=== PATIENT | female | born 1965 | race American Indian/Alaskan Native ===

== ENCOUNTER 2018-03-22 20:13 | Emergency (ER) | payer SELFPAY ==
[2018-03-22 20:22] VITALS: BP 159/101
--- NOTE | 2018-03-22 21:35 | XRay Report ---
FINAL REPORT EXAM: XR FOREARM LT HISTORY: puncture wound TECHNIQUE: Left forearm two views PRIORS: None. FINDINGS: There is no fracture identified. No radiopaque foreign bodies are seen. There is soft tissue air and irregularity consistent with the history of puncture wound. IMPRESSION: No fracture or radiopaque foreign body identified
[2018-03-22 23:38] LABS: Basophils % (Auto) 0.3 % (0.0-1.8); Eosinophils # (Auto) 0.2 K/mm3 (0.0-0.4); Eosinophils % (Auto) 1.3 % (0.0-4.3); Hematocrit 38.8 % (30.3-42.9); Hemoglobin 12.8 gm/dl (10.1-14.3); Lymphocytes # (Auto) 2.5 K/mm3 (1.2-5.4); Lymphocytes % (Auto) 19.7 % (13.4-35.0); Mean Corpuscular HGB Conc 33 % (30-34); Mean Corpuscular Hemoglobin 32 pg (28-32); Mean Corpuscular Volume 96 fl (79-97); Monocytes # (Auto) 0.9 K/mm3 (0.0-0.8); Monocytes % (Auto) 6.9 % (0.0-7.3); Platelet Count 310 K/mm3 (140-440); Red Blood Count 4.05 M/mm3 (3.65-5.03); Red Cell Distribution Width 13.1 % (13.2-15.2)
[2018-03-22 23:55] LABS: Alanine Aminotransferase 10 units/L (7-56); Albumin 4.5 g/dL (3.9-5); BUN/Creatinine Ratio 17; Blood Urea Nitrogen 10 mg/dL (7-17); Calcium 9.5 mg/dL (8.4-10.2); Hemolysis Index 1
[2018-03-23] MEDS ORDERED: PERCOCET 5/325 ONE (00:37)
[2018-03-23] MEDS ORDERED: PERCOCET 5/325 PO ONE (00:38)
--- NOTE | 2018-03-23 01:04 | Emergency Department Report ---
- General Chief Complaint: Puncture Wound Stated Complaint: LT ARM INJURY Source: patient Mode of arrival: Ambulatory Limitations: No Limitations - History of Present Illness Initial Comments: 53-year-old female reports that she punctured her left arm on the radial after she slipped at her friend's apartment complex. Patient reports that she is up-to-date on her tetanus that she had in September at her per physical examination. Patient has no other complaints or concerns at this time. Patient takes no chronic medication she did have a lump move out of her left breast. -: This evening (Tuesday) Extremity Location: Left: Forearm Place: home Patient Tetanus UTD: Yes Context: accidental Associated Symptoms: pain. denies: loss of feeling/numbness, suspect foreign body present, unable to move injured part, weakness followed by dizziness, nausea/vomiting, fever Treatments Prior to Arrival: bandage - Related Data Previous Rx's Medication Instructions Recorded Last Taken Type Acetaminophen with Codeine 1 tab PO Q6HR #12 tab 03/23/18 Unknown Rx [Acetaminophen-Codeine #4 TAB] Cephalexin [Keflex] 500 mg PO BID #20 capsule 03/23/18 Unknown Rx Sulfamethoxazole/Trimethoprim 1 each PO BID #20 tablet 03/23/18 Unknown Rx [Bactrim DS TAB] Allergies Allergy/AdvReac Type Severity Reaction Status Date / Time No Known Allergies Allergy Verified 03/23/18 00:42 ED Review of Systems ROS: Stated complaint: LT ARM INJURY Other details as noted in HPI Skin: other (puncture wound to left forearm with pain) ED Past Medical Hx - Surgical History Past Surgical History?: Yes Additional Surgical History: lump removal from breast Left breast - Social History Smoking Status: Never Smoker Substance Use Type: None - Medications Home Medications: Home Medications Medication Instructions Recorded Confirmed Last Taken Type Acetaminophen with Codeine 1 tab PO Q6HR #12 tab 03/23/18 Unknown Rx [Acetaminophen-Codeine #4 TAB] Cephalexin [Keflex] 500 mg PO BID #20 capsule 03/23/18 Unknown Rx Sulfamethoxazole/Trimethoprim 1 each PO BID #20 tablet 03/23/18 Unknown Rx [Bactrim DS TAB] ED Physical Exam - General Limitations: No Limitations General appearance: alert, in no apparent distress - Head Head exam: Present: atraumatic, normocephalic - Eye Eye exam: Present: EOMI - Respiratory Respiratory exam: Present: normal lung sounds bilaterally. Absent: respiratory distress - Cardiovascular Cardiovascular Exam: Present: regular rate, normal rhythm. Absent: systolic murmur, diastolic murmur, rubs, gallop - Expanded Upper Extremity Exam Left Shoulder Exam: Present: normal inspection, full ROM Upper Arm exam: Present: full ROM. Absent: tenderness Forearm Wrist exam: Present: full ROM, tenderness, swelling, laceration, erythema Hand Wrist exam: Present: normal inspection, full ROM. Absent: tenderness Vascular: Present: normal capillary refill, radial pulse, brachial pulse, ulnar pulse. Absent: vascular compromise, pulse deficit radial art, pulse deficit ulnar art, pulse deficit brachial art - Neurological Exam Neurological exam: Present: alert, oriented X3 - Psychiatric Psychiatric exam: Present: normal affect, normal mood ED Course Vital Signs 03/22/18 03/23/18 20:17 03:30 Temperature 98.6 F Pulse Rate 76 72 Respiratory 18 17 Rate Blood Pressure 159/101 O2 Sat by Pulse 98 99 Oximetry ED Medical Decision Making - Lab Data Result diagrams: 03/22/18 23:22 03/22/18 23:22 - Radiology Data Radiology results: report reviewed, image reviewed FINAL REPORT EXAM: XR FOREARM LT HISTORY: puncture wound TECHNIQUE: Left forearm two views PRIORS: None. FINDINGS: There is no fracture identified. No radiopaque foreign bodies are seen. There is soft tissue air and irregularity consistent with the history of puncture wound. IMPRESSION: No fracture or radiopaque foreign body identified Transcribed By: EDIL Dictated By: GABRIEL NEWELL MD Electronically Authenticated By: GABRIEL NEWELL MD Signed Date/Time: 03/22/182130 DD/ 30 TD/TT: 03/22/182130 - Medical Decision Making Patient has been evaluated by this provider as well as Dr. Barnett. Referral the data lead clean and place wet-to-dry dressing to wound. Patient has been given Percocet for pain management. We'll discharge patient on Tylenol No. 4. As well as antibiotics to cover Recommend patient to follow up with her primary care provider Critical care attestation.: If time is entered above; I have spent that time in minutes in the direct care of this critically ill patient, excluding procedure time. ED Disposition Clinical Impression: Puncture wound of arm, left, complicated Qualifiers: Encounter type: initial encounter Qualified Code(s): S41.132A - Puncture wound without foreign body of left upper arm, initial encounter Disposition: DC- TO HOME OR SELFCARE Is pt being admited?: No Does the pt Need Aspirin: No Condition: Stable Instructions: Puncture Wound (ED) Additional Instructions: Complete antibiotics as prescribed. These change dressing wet to dry. Follow- up with her primary care provider in the next 3-5 days. Prescriptions: Acetaminophen with Codeine [Acetaminophen-Codeine #4 TAB] 1 tab PO Q6HR #12 tab Cephalexin [Keflex] 500 mg PO BID #20 capsule Sulfamethoxazole/Trimethoprim [Bactrim DS TAB] 1 each PO BID #20 tablet Referrals: PRIMARY CARE, [Primary Care Provider] - 3-5 Days [facility] [Provider Group] - 3-5 Days Forms: Accompanied Note, Work/School Release Form(ED)
== END 2018-03-23 02:50 | disposition home or self-care (01) ==
LOC: ED 20:13
DX: S51.842A Puncture wound with foreign body of left forearm, initial encounter (principal); W01.0XXA Fall on same level from slipping, tripping and stumbling without subsequent striking against object, initial encounter; Y93.89 Activity, other specified; Y92.89 Other specified places as the place of occurrence of the external cause; Y99.8 Other external cause status
CPT/HCPCS: 36415; 80053; 85025; 99284